=== PATIENT | female | born 1965 | race Two or more races ===

== ENCOUNTER 2020-06-17 16:21 | Emergency (ER) | payer OTHER ==
[~2020-06-17] VITALS: Ht 147.3 cm; Wt 60.3 kg
[~2020-06-17 16:21] MED LIST: SEPTRA DS TABLE1 TAB PO
[2020-06-17] MEDS ORDERED: SYNTHROID50 MCG (16:52)
[2020-06-17] MEDS ORDERED: IMURAN50 MG PO (16:53)
[2020-06-17] MEDS ORDERED: PEPCID AC10 MG (16:54)
[2020-06-17] MEDS ORDERED: FOSAMAX70 MG (16:54)
[2020-06-17] MEDS ORDERED: NEURONTIN600 M1 (16:54)
== END 2020-06-18 09:03 | disposition home or self-care (01) ==
LOC: ER 16:21
DX: B34.9 Viral infection, unspecified (principal); R10.2 Pelvic and perineal pain; D72.818 Other decreased white blood cell count; D69.49 Other primary thrombocytopenia; M32.8 Other forms of systemic lupus erythematosus; Z03.818 Encounter for observation for suspected exposure to other biological agents ruled out

== ENCOUNTER 2020-06-27 11:08 | Emergency (ER) | payer OTHER ==
[~2020-06-27] VITALS: Ht 147.3 cm; Wt 60.3 kg
[~2020-06-27 11:08] MED LIST changes: +FOSAMAX70 MG; +IMURAN50 MG PO; +NEURONTIN600 M1; +PEPCID AC10 MG; +SYNTHROID50 MCG
[2020-06-27] MEDS ORDERED: PREDNISONE10 MG (11:32)
[2020-06-27] MEDS ORDERED: KETO10TA2 (11:34)
[2020-06-27] MEDS ORDERED: SKELAXIN800 MG PO (15:12)
[2020-06-27] MEDS ORDERED: ULTRAM50 MG PO (15:12)
[2020-06-27] MEDS ORDERED: CELEBREX200MG PO (15:12)
== END 2020-06-27 15:17 | disposition home or self-care (01) ==
LOC: ER 11:08
DX: M54.6 Pain in thoracic spine (principal); R07.89 Other chest pain

== ENCOUNTER 2020-07-18 16:08 | Emergency (ER) | payer OTHER ==
[~2020-07-18] VITALS: Ht 147.3 cm; Wt 59.0 kg
[~2020-07-18 16:08] MED LIST changes: +CELEBREX200MG PO; +KETO10TA2; +PREDNISONE10 MG; +SKELAXIN800 MG PO; +ULTRAM50 MG PO
== END 2020-07-19 11:14 | disposition home or self-care (01) ==
LOC: ER 16:08
DX: I82.431 Acute embolism and thrombosis of right popliteal vein (principal); I87.2 Venous insufficiency (chronic) (peripheral)

== ENCOUNTER 2022-08-20 09:47 | Outpatient (CLI) | payer OTHER | END 2022-08-20 10:04 | disposition home or self-care (01) | LOC: MRI 09:47 | PROVIDERS: ATTEND Internal Medicine Rheumatology | DX: I77.6 Arteritis, unspecified (principal) | CPT/HCPCS: 72198; 74185 ==

== ENCOUNTER 2024-06-18 14:43 | Emergency (ER) | payer OTHER ==
[~2024-06-18] VITALS: Ht 147.3 cm; Wt 56.7 kg
[2024-06-18] MEDS ORDERED: ELIQUIS2.5 MG (15:24)
[2024-06-18] MEDS ORDERED: SINGULAIR4 M1 (15:24)
[2024-06-18] MEDS ORDERED: PIPERACILLIN/TAZOBACTAM SODIUM 3.375 GM VIAL IV ONE (17:15)
[2024-06-18] MEDS ORDERED: ONDANSETRON HCL 2 MG/ML VIAL IV ONE (17:15)
[2024-06-18] MEDS ORDERED: KETOROLAC TROMETHAMINE 30 MG VIAL IU ONE (17:15)
[2024-06-18] MEDS ORDERED: 0.9 % SODIUM CHLORIDE 1,000 ML IV ONE (17:15)
[2024-06-18] MEDS ORDERED: FAMOtidine 10 MG/ML (4ML VIAL) IV ONE (17:15)
[2024-06-18 18:08] LABS: HEMATOCRIT 40.9 % (36.0-45.00); HEMOGLOBIN 13.4 g/dL (12.0-15.00); MEAN CELL VOLUME 92.5 fL (80.00-100.00); MEAN CORPUSCULAR HEMOGLOBIN 30.2 pg (27.00-32.0); MEAN CORPUSCULAR HGB CONC 32.7 g/dl (32.0-36.0); PLATELET COUNT 161 K/uL (150-450); RED BLOOD COUNT 4.42 M/uL (4.00-6.00); RED CELL DISTRIBUTION WIDTH 15.7 % (11.5-14.5)
[2024-06-18 18:27] LABS: ALBUMIN 3.4 gm/dL (3.4-5.0); BILIRUBIN TOTAL 0.36 mg/dL (0.3-1.2); CALCIUM 9.3 mg/dL (8.5-10.1); CREATININE SERUM 1.04 mg/dL (0.55-1.02); GFR 54.43; GLOBULINA 5.7 G/DL (2.4-3.5); POTASSIUM 4.19 mEq/L (3.5-5.1); TOTAL PROTEIN 9.1 gm/dL (6.4-8.2)
[2024-06-18 18:29] LABS: INR 1.02; PROTHROMBIN TIME 11.1 SECONDS (9.0-11.5)
[2024-06-18 18:31] LABS: PARTIAL THROMBOPLASTIN TIME < 20.0 SECONDS (22.0-34.0)
[2024-06-18 20:55] LABS: URINE APPEARANCE Clear; URINE BILIRRUBIN Negative (NEGATIVE); URINE BLOOD Negative; URINE COLOR Dark Yellow; URINE GLUCOSE Negative (NEGATIVE); URINE KETONE Trace (NEGATIVE); URINE LEUKOCYTE Small; URINE NITRATE Negative; URINE PROTEIN 30 (NEGATIVE)
[2024-06-18 20:59] LABS: URINE BACTERIA 190.9 uL (0.0-1933); URINE CAST 5.44 uL (0.0-1.40); URINE EPITHELIAL CELLS 14.8 uL (0.0-38.8); URINE RBC 12.2 uL (0.0-20.8); URINE WBC 13.7 uL (0.0-23.2)
[2024-06-19] MEDS ORDERED: CIPROFLOXACIN IN 5 % DEXTROSE 400 MG/200 ML PIGGYBAG IV STA (04:20)
[2024-06-19] MEDS ORDERED: METRONIDAZOLE/SODIUM CHLORIDE 500 MG/100 ML PIGGYBACK IV STA (04:21)
[2024-06-19] MEDS ORDERED: MORPHINE SULFATE 4 MG/ML VIAL IV STA (04:21)
[2024-06-19] MEDS ORDERED: MEPERIDINE HCL/PF 25 MG/ML VIAL IV ONE (11:00)
[2024-06-19] MEDS ORDERED: DOCUSATE SODIUM 100MG CAP PO ONE (11:00)
[2024-06-19] MEDS ORDERED: POLYETHYLENE GLYCOL 3350 17 GM BLIST.PACK PO ONE (11:00)
[2024-06-19] MEDS ORDERED: MORPHINE SULFATE 4 MG/ML VIAL IV SCH (11:15)
== END 2024-06-19 11:31 | disposition home or self-care (01) ==
LOC: ER 14:46
PROVIDERS: General Practice
DX: R10.31 Right lower quadrant pain (principal); R10.9 Unspecified abdominal pain
CPT/HCPCS: 36415; 74177; Q9965